=== PATIENT | female | born 1940 | race Caucasian/White ===

== ENCOUNTER → 2016-09-02 | Outpatient (CLI) | payer MEDICARE, OTHER ==
--- NOTE | 2016-09-03 02:28 | CT ---
Procedure: CT HEAD ANGIOGRAPHY WITH IV CONTRAST, CT NECK ANGIOGRAPHY WITH IV CONTRAST Exam Date: 09/02/2016 Ordering Provider: Jerald Garcia Clinical Indication: STENOSIS Comparison: None Technique: Using a helical scanner, sequential axial imaging of the brain and neck was obtained before and after the administration of the contrast medium. At an independent workstation, 3-D reconstructions of the common and internal carotid arteries were obtained. This exam was performed according to our departmental dose optimization program which includes use of automated exposure control, adjustment of the mA and/or kV according to patient size and/or use of iterative reconstruction technique. Findings: The supraclinoid internal carotid artery segments are patent bilaterally. The anterior and middle cerebral arteries are patent without stenosis. The basilar artery has a normal appearance. The posterior cerebral arteries are patent without stenosis. There is no intracranial aneurysm. There is no arteriovenous shunting noted. There is no evidence of an AVM or AVF. There is a bovine arch. The innominate artery is patent. The visualized subclavian arteries are patent. The right common carotid artery is patent. The right internal carotid artery is patent. The left common carotid artery is patent. There is calcified atherosclerotic plaque at the left carotid bulb without significant stenosis. The left internal carotid artery is patent. The vertebral arteries are widely patent. Incidentally noted is a multinodular thyroid goiter. IMPRESSION: 1. Negative CT angiogram of the brain. 2. CT angiogram of the neck demonstrates no stenosis identified by criteria similar to NASCET. 3. Multinodular thyroid goiter. Further evaluation with dedicated thyroid ultrasound is recommended. Electronically signed by: Jimmy Langley MD 09/03/2016 2:26 AM CDT
== END | disposition home or self-care (01) ==
LOC: CT 10:40
PROVIDERS: ATTEND Nurse Practitioner
DX: I65.23 Occlusion and stenosis of bilateral carotid arteries (principal)

== ENCOUNTER → 2018-06-08 | Outpatient (CLI) | payer MEDICARE ==
--- NOTE | 2018-06-09 07:40 | CT ---
EXAMS: CTA Chest CLINICAL HISTORY: Shortness of breath COMPARISON STUDY: None. TECHNICAL: CTA protocol. Axial post contrast images obtained through the chest with coronal and sagittal MIP reconstructed images. FINDINGS: Multiple images were obtained with intravenous contrast. The mediastinum and great vessels are well seen. The nurys are unremarkable. Soft tissue windows demonstrate no mass or adenopathy. There is no filling defect that would diagnose a pulmonary embolus. The aorta is nondilated and there is no evidence of aortic dissection. The heart is not enlarged. Prominent thyroid tissue extends into the chest in the appearance is that of a goiter. A moderate size hiatal hernia is present. Lung windows show linear opacities in both lung bases, the right posterior apex, lingula and right middle lobe. Linear opacities are suggestive of atelectasis or scarring. There is a small patch of infiltrate of density in the right lower lobe. There is a calcified granuloma in the medial aspect of the right lower lobe on the lateral aspect of the left upper lobe. There are 2 nodular densities in the anterior aspect of the right upper lobe that are less than 3 mm in short axis. There is no pulmonary mass. The airways are patent. There is no pneumothorax or pleural effusion. IMPRESSION: 1. No visible pulmonary embolus. 2. Very mild infiltrative density in the right lower lobe. 3. Moderate size hiatal hernia. 4. Substernal goiter. 5. Less than 4 mm nodules in the right upper lobe. If the patient is at low risk for lung cancer, no follow-up is needed. The patient has a high risk for lung cancer, follow-up CT chest in 8-12 months is recommended. This exam was performed according to our departmental dose-optimization program, which includes automated exposure control, adjustment of the mA and/or kV according to patient size and/or use of iterative reconstruction technique. Electronically signed by: Paulo Lopez MD 06/09/2018 7:37 AM CDT
== END ==
LOC: CT 09:30
PROVIDERS: ATTEND General Practice
DX: R91.8 Other nonspecific abnormal finding of lung field (principal); K44.9 Diaphragmatic hernia without obstruction or gangrene; E04.9 Nontoxic goiter, unspecified